=== PATIENT | female | born 1955 | race Caucasian/White ===

== ENCOUNTER → 2017-09-17 | Outpatient (REF) | payer OTHER, SELFPAY ==
[2017-09-22 00:08] LABS: ACETYLCHOLINE RCPTOR BINDING A < 0.03 nmol/L (0.00-0.24)
== END ==
LOC: M LAB REF 17:07
DX: H53.2 Diplopia (principal)
CPT/HCPCS: 83519

== ENCOUNTER → 2020-11-21 | Outpatient (CLI) | payer MEDICARE, OTHER ==
[~2020-11-21] MED LIST: ASPI-286 PO; ERYTHROMYCIN PO; GABA-282 PO; Magnesium PO; NEXI40CA PO; NICO14DI20 TD; VITA100T51 PO; VITA500046 PO; ZOCO20TA PO
--- NOTE | 2020-11-21 18:00 | REP ---
INDICATION: CERVICAL SPINE PAIN. Atraumatic pain COMPARISON: None. TECHNIQUE: Eight views FINDINGS: There is mild disc space narrowing at every level. Vertebral body height and alignment is within normal limits. There is no evidence of limitation of flexion or extension radiographically. Hypertrophic degenerative facet and uncovertebral joint changes are seen at every level bilaterally. The intervertebral foramina appear ample bilaterally. The facet joints are well aligned bilaterally. The dens cannot be effectively evaluated secondary to the superimposition of osseous structures and/or dentition on all views. IMPRESSION: Chronic changes and exam limitations as described above. <Electronically signed by Quintin Ulloa > 11/21/20 0999
== END ==
LOC: M RAD 16:22
PROVIDERS: ATTEND Internal Medicine
DX: M48.02 Spinal stenosis, cervical region (principal); M54.2 Cervicalgia

== ENCOUNTER → 2021-03-06 | Outpatient (CLI) | payer MEDICARE, OTHER | LOC: M WHC 12:17 | PROVIDERS: ATTEND Internal Medicine | DX: Z12.31 Encounter for screening mammogram for malignant neoplasm of breast (principal); M85.89 Other specified disorders of bone density and structure, multiple sites ==

== ENCOUNTER → 2021-06-26 | Outpatient (REF) | payer MEDICARE, OTHER ==
[~2021-06-26] MED LIST changes: -ASPI-286 PO; +SM C81CH2 PO
== END ==
LOC: M LAB REF 16:13
PROVIDERS: ATTEND Internal Medicine
DX: M25.50 Pain in unspecified joint (principal)

== ENCOUNTER → 2023-04-01 | Outpatient (REF) | payer MEDICARE, OTHER ==
[~2023-04-01] MED LIST changes: +SIMV-253 PO; -ZOCO20TA PO
== END ==
LOC: M LAB REF 12:31
PROVIDERS: ATTEND Internal Medicine
DX: M19.90 Unspecified osteoarthritis, unspecified site (principal)

== ENCOUNTER → 2023-04-14 | Outpatient (CLI) | payer MEDICARE, OTHER | LOC: M WUC 14:18 | PROVIDERS: ATTEND Internal Medicine | DX: M25.549 Pain in joints of unspecified hand (principal) ==

== ENCOUNTER → 2023-04-29 | Outpatient (CLI) | payer MEDICARE, OTHER | LOC: M WHC 13:11 | PROVIDERS: ATTEND Internal Medicine | DX: Z12.31 Encounter for screening mammogram for malignant neoplasm of breast (principal); M85.89 Other specified disorders of bone density and structure, multiple sites ==

== ENCOUNTER → 2023-08-12 | Outpatient (CLI) | payer MEDICARE, OTHER | LOC: M RAD 13:06 | PROVIDERS: ATTEND Internal Medicine | DX: Z12.2 Encounter for screening for malignant neoplasm of respiratory organs (principal); F17.211 Nicotine dependence, cigarettes, in remission ==

== ENCOUNTER → 2024-04-21 | Outpatient (CLI) | payer OTHER ==
[~2024-04-21] MED LIST changes: +GABA-1172 PO; -GABA-282 PO
== END ==
LOC: M RAD 11:47
PROVIDERS: ATTEND Internal Medicine
DX: M25.531 Pain in right wrist (principal); M25.431 Effusion, right wrist

== ENCOUNTER → 2024-12-22 | Outpatient (CLI) | payer OTHER | LOC: M RAD 10:53 | PROVIDERS: ATTEND Internal Medicine | DX: M47.816 Spondylosis without myelopathy or radiculopathy, lumbar region (principal); R53.83 Other fatigue; M48.56XA Collapsed vertebra, not elsewhere classified, lumbar region, initial encounter for fracture ==

== ENCOUNTER → 2025-01-31 | Outpatient (CLI) | payer OTHER | LOC: M RAD 11:28 | PROVIDERS: ATTEND Internal Medicine | DX: R05.9 Cough, unspecified (principal) ==